=== PATIENT | male | born 1980 | race Caucasian/White ===

== ENCOUNTER 2021-12-20 13:43 | Inpatient (IN) | payer OTHER ==
[2021-12-20 14:23] VITALS: BMI 31.4
[2021-12-20] MEDS ORDERED: IBUPROFEN 400 MG TABLET (FP) PO PRN (14:41)
[2021-12-20] MEDS ORDERED: MAGNESIUM CITRATE 300 ML BOTTLE PO PRN (14:41)
[2021-12-20] MEDS ORDERED: IBUPROFEN 600 MG TABLET (FP) PO PRN (14:41)
[2021-12-20] MEDS ORDERED: ACETAMINOPHEN 325 MG TABLET (FP) PO PRN ×2 (14:41)
[2021-12-20] MEDS ORDERED: NICOTINE 10 MG CARTRIDGE (INHALER) IH PRN (14:41)
[2021-12-20] MEDS ORDERED: cloNIDine HCL 0.1 MG TABLET PO PRN (14:41)
[2021-12-20] MEDS ORDERED: LOPERAMIDE HCL 2 MG CAPSULE PO PRN (14:41)
[2021-12-20] MEDS ORDERED: chlordiazePOXIDE HCL 25 MG CAPSULE PO PRN (14:41)
[2021-12-20] MEDS ORDERED: MAGNESIUM HYDROX 2400MG/30ML ORAL SUSPENSION 30 ML CUP PO PRN (14:41)
[2021-12-20] MEDS ORDERED: methaDONE HCL 10 MG TABLET (FOR DETOX USE ONLY) PO ONE ×2 (14:41→19:30)
[2021-12-20] MEDS ORDERED: BISMUTH SUBSALICYLATE 262 MG/15 ML BTL PO PRN (14:41)
[2021-12-20] MEDS ORDERED: ONDANSETRON *ODT* 4 MG TABLET SL PRN (14:41)
[2021-12-20] MEDS ORDERED: BENZOCAINE/MENTHOL (CHLORASEPTIC ) LOZENGE MM PRN (14:41)
[2021-12-20] MEDS ORDERED: MAG HYDROX/AL HYDROX/SIMETH 30 ML UNIT-DOSE CUP PO PRN (14:41)
[2021-12-20] MEDS ORDERED: NALOXONE HCL (KLOXXADO) 8 MG SPRAY NS PRN (14:41)
[2021-12-20] MEDS ORDERED: DICYCLOMINE HCL 10 MG CAPSULE PO PRN (14:41)
[2021-12-20] MEDS: PRENATAL VITAMINS W/ FOLIC ACID TABLET (FP) PO SCH (19:40)
[2021-12-20] MEDS: NICOTINE 14 MG/24 HOURS TOPICAL PATCH TD SCH (19:41)
[2021-12-20] MEDS: hydrOXYzine PAMOATE 25 MG CAPSULE (FP) PO SCH ×2 (19:41→23:35)
[2021-12-20] MEDS: chlordiazePOXIDE HCL 25 MG CAPSULE PO SCH ×2 (19:42→23:10)
[2021-12-20] MEDS: THIAMINE HCL 100 MG TABLET (FP) PO SCH (23:11)
[2021-12-20] MEDS: MELATONIN 5 MG TABLETS PO SCH (23:13)
[2021-12-21] MEDS: hydrOXYzine PAMOATE 25 MG CAPSULE (FP) PO SCH ×6 (06:23→22:25)
[2021-12-21] MEDS: chlordiazePOXIDE HCL 25 MG CAPSULE PO SCH ×4 (06:23→22:24)
[2021-12-21] MEDS ORDERED: methaDONE HCL 10 MG TABLET (FOR DETOX USE ONLY) ONE (09:53)
[2021-12-21] MEDS: PRENATAL VITAMINS W/ FOLIC ACID TABLET (FP) PO SCH (10:46)
[2021-12-21] MEDS: METHOCARBAMOL 500 MG TABLET PO PRN (10:46)
[2021-12-21] MEDS: NICOTINE 14 MG/24 HOURS TOPICAL PATCH TD SCH (10:47)
[2021-12-21] MEDS: SERTRALINE HCL 50 MG TABLET (FP) PO SCH (13:11)
[2021-12-21] MEDS: QUEtiapine FUMARATE 50 MG TABLET PO SCH (22:24)
[2021-12-21] MEDS: THIAMINE HCL 100 MG TABLET (FP) PO SCH (22:24)
[2021-12-21] MEDS: MELATONIN 5 MG TABLETS PO SCH (22:25)
[2021-12-22] MEDS: chlordiazePOXIDE HCL 25 MG CAPSULE PO SCH ×4 (05:43→22:28)
[2021-12-22] MEDS: hydrOXYzine PAMOATE 25 MG CAPSULE (FP) PO SCH ×5 (05:43→22:30)
[2021-12-22] MEDS ORDERED: methaDONE HCL 10 MG TABLET (FOR DETOX USE ONLY) PO ONE (10:00)
[2021-12-22] MEDS: SERTRALINE HCL 50 MG TABLET (FP) PO SCH (10:34)
[2021-12-22] MEDS: PRENATAL VITAMINS W/ FOLIC ACID TABLET (FP) PO SCH (10:34)
[2021-12-22] MEDS: METHOCARBAMOL 500 MG TABLET PO PRN (10:35)
[2021-12-22] MEDS: NICOTINE 14 MG/24 HOURS TOPICAL PATCH TD SCH (10:36)
[2021-12-22] MEDS: THIAMINE HCL 100 MG TABLET (FP) PO SCH (22:28)
[2021-12-22] MEDS: MELATONIN 5 MG TABLETS PO SCH (22:28)
[2021-12-22] MEDS: QUEtiapine FUMARATE 50 MG TABLET PO SCH (22:28)
[2021-12-23] MEDS ORDERED: chlordiazePOXIDE HCL 10 MG CAPSULE PO PRN
[2021-12-23] MEDS: chlordiazePOXIDE HCL 10 MG CAPSULE PO SCH ×4 (05:35→22:47)
[2021-12-23] MEDS: hydrOXYzine PAMOATE 25 MG CAPSULE (FP) PO SCH ×5 (05:35→22:46)
[2021-12-23] MEDS ORDERED: methaDONE HCL 10 MG TABLET (FOR DETOX USE ONLY) ONE (09:49)
[2021-12-23] MEDS: PRENATAL VITAMINS W/ FOLIC ACID TABLET (FP) PO SCH (10:48)
[2021-12-23] MEDS: SERTRALINE HCL 50 MG TABLET (FP) PO SCH (10:48)
[2021-12-23] MEDS: NICOTINE 14 MG/24 HOURS TOPICAL PATCH TD SCH (10:50)
[2021-12-23] MEDS: MELATONIN 5 MG TABLETS PO SCH (22:45)
[2021-12-23] MEDS: THIAMINE HCL 100 MG TABLET (FP) PO SCH (22:46)
[2021-12-23] MEDS: QUEtiapine FUMARATE 50 MG TABLET PO SCH (22:47)
[2021-12-24] MEDS: hydrOXYzine PAMOATE 25 MG CAPSULE (FP) PO SCH ×5 (05:22→22:12)
[2021-12-24] MEDS: chlordiazePOXIDE HCL 10 MG CAPSULE PO SCH ×2 (05:23→17:35)
[2021-12-24] MEDS ORDERED: methaDONE HCL 10 MG TABLET (FOR DETOX USE ONLY) PO ONE (10:00)
[2021-12-24] MEDS: PRENATAL VITAMINS W/ FOLIC ACID TABLET (FP) PO SCH (10:35)
[2021-12-24] MEDS: SERTRALINE HCL 50 MG TABLET (FP) PO SCH (10:36)
[2021-12-24] MEDS: NICOTINE 14 MG/24 HOURS TOPICAL PATCH TD SCH (10:37)
[2021-12-24] MEDS: METHOCARBAMOL 500 MG TABLET PO PRN (22:12)
[2021-12-24] MEDS: MELATONIN 5 MG TABLETS PO SCH (22:12)
[2021-12-24] MEDS: THIAMINE HCL 100 MG TABLET (FP) PO SCH (22:12)
[2021-12-24] MEDS: QUEtiapine FUMARATE 50 MG TABLET PO SCH (22:12)
[2021-12-25] MEDS ORDERED: chlordiazePOXIDE HCL 10 MG CAPSULE PO ONE (05:00)
[2021-12-25] MEDS: hydrOXYzine PAMOATE 25 MG CAPSULE (FP) PO SCH ×2 (05:46→11:00)
[2021-12-25 09:39] VITALS: RESP 17
[2021-12-25] MEDS: NICOTINE 14 MG/24 HOURS TOPICAL PATCH TD SCH (11:00)
[2021-12-25] MEDS: SERTRALINE HCL 50 MG TABLET (FP) PO SCH (11:00)
[2021-12-25] MEDS: PRENATAL VITAMINS W/ FOLIC ACID TABLET (FP) PO SCH (11:00)
[2021-12-25 13:24] VITALS: BP 120/66; PULSE 60; TEMP 97.1
== END 2021-12-25 13:25 | disposition other institution (70) | DRG 773 ==
LOC: YASAS 13:43 → Y6N 15:03
PROVIDERS: ADMIT Allergy & Immunology; ATTEND Surgery
PROC: HZ2ZZZZ Detoxification Services for Substance Abuse Treatment (ICD-10-PCS; principal; 2021-12-20)
DX: F11.23 Opioid dependence with withdrawal (principal); F10.230 Alcohol dependence with withdrawal, uncomplicated; F14.20 Cocaine dependence, uncomplicated; F12.20 Cannabis dependence, uncomplicated; F17.210 Nicotine dependence, cigarettes, uncomplicated; F19.282 Other psychoactive substance dependence with psychoactive substance-induced sleep disorder; F20.9 Schizophrenia, unspecified; E78.5 Hyperlipidemia, unspecified; I10 Essential (primary) hypertension; J45.909 Unspecified asthma, uncomplicated; R00.1 Bradycardia, unspecified; E66.9 Obesity, unspecified; Z68.31 Body mass index [BMI] 31.0-31.9, adult
CPT/HCPCS: 71045-TC-FY; 93005; 93010; C9803-CS; U0003; U0005

== ENCOUNTER 2021-12-25 13:30 | Inpatient (IN) | payer OTHER ==
[2021-12-25] MEDS ORDERED: MAGNESIUM HYDROX 2400MG/30ML ORAL SUSPENSION 30 ML CUP PO PRN (15:03)
[2021-12-25] MEDS ORDERED: BENZOCAINE/MENTHOL (CHLORASEPTIC ) LOZENGE MM PRN (15:03)
[2021-12-25] MEDS ORDERED: MAGNESIUM CITRATE 300 ML BOTTLE PO PRN (15:03)
[2021-12-25] MEDS ORDERED: LOPERAMIDE HCL 2 MG CAPSULE PO PRN (15:03)
[2021-12-25] MEDS ORDERED: ACETAMINOPHEN 325 MG TABLET (FP) PO PRN (15:03)
[2021-12-25] MEDS ORDERED: guaiFENesin 200 MG/10 ML 10 ML UNIT-DOSE CUPS PO PRN (15:03)
[2021-12-25] MEDS ORDERED: MAG HYDROX/AL HYDROX/SIMETH 30 ML UNIT-DOSE CUP PO PRN (15:03)
[2021-12-25] MEDS ORDERED: P-EPHED 60MG/TRIPROLIDI 2.5MG TABLET PO PRN (15:03)
[2021-12-25] MEDS: IBUPROFEN 400 MG TABLET (FP) PO PRN (17:20)
[2021-12-25] MEDS: MELATONIN 5 MG TABLETS PO SCH (21:38)
[2021-12-25] MEDS: THIAMINE HCL 100 MG TABLET (FP) PO SCH (21:39)
[2021-12-25] MEDS: hydrOXYzine PAMOATE 25 MG CAPSULE (FP) PO PRN (21:39)
[2021-12-25] MEDS: QUEtiapine FUMARATE 50 MG TABLET PO SCH (21:39)
[2021-12-26] MEDS: NICOTINE 7 MG/24 HOURS TOPICAL PATCH TD SCH (09:35)
[2021-12-26] MEDS: PRENATAL VITAMINS W/ FOLIC ACID TABLET (FP) PO SCH (09:35)
[2021-12-26] MEDS: SERTRALINE HCL 50 MG TABLET (FP) PO SCH (09:35)
[2021-12-26] MEDS ORDERED: PNEUMOC 20-VAL CONJ-DIP CRM/PF 0.5 ML SYRINGE IM ONE (12:00)
[2021-12-26] MEDS: NICOTINE 10 MG CARTRIDGE (INHALER) IH PRN (13:57)
[2021-12-26] MEDS: MELATONIN 5 MG TABLETS PO SCH (21:28)
[2021-12-26] MEDS: THIAMINE HCL 100 MG TABLET (FP) PO SCH (21:28)
[2021-12-26] MEDS: hydrOXYzine PAMOATE 25 MG CAPSULE (FP) PO PRN (21:28)
[2021-12-26] MEDS: QUEtiapine FUMARATE 50 MG TABLET PO SCH (21:29)
[2021-12-27] MEDS: PRENATAL VITAMINS W/ FOLIC ACID TABLET (FP) PO SCH (09:04)
[2021-12-27] MEDS: NICOTINE 7 MG/24 HOURS TOPICAL PATCH TD SCH (09:04)
[2021-12-27] MEDS: SERTRALINE HCL 50 MG TABLET (FP) PO SCH (09:05)
[2021-12-27] MEDS: IBUPROFEN 400 MG TABLET (FP) PO PRN (12:19)
[2021-12-27] MEDS: MELATONIN 5 MG TABLETS PO SCH (21:23)
[2021-12-27] MEDS: THIAMINE HCL 100 MG TABLET (FP) PO SCH (21:23)
[2021-12-27] MEDS: QUEtiapine FUMARATE 50 MG TABLET PO SCH (21:23)
[2021-12-28] MEDS: NICOTINE 7 MG/24 HOURS TOPICAL PATCH TD SCH (09:37)
[2021-12-28] MEDS: SERTRALINE HCL 50 MG TABLET (FP) PO SCH (09:38)
[2021-12-28] MEDS: PRENATAL VITAMINS W/ FOLIC ACID TABLET (FP) PO SCH (09:38)
[2021-12-28] MEDS: NICOTINE 10 MG CARTRIDGE (INHALER) IH PRN (10:19)
[2021-12-28] MEDS: MELATONIN 5 MG TABLETS PO SCH (21:17)
[2021-12-28] MEDS: THIAMINE HCL 100 MG TABLET (FP) PO SCH (21:17)
[2021-12-28] MEDS: QUEtiapine FUMARATE 50 MG TABLET PO SCH (21:17)
[2021-12-29] MEDS: PRENATAL VITAMINS W/ FOLIC ACID TABLET (FP) PO SCH (09:38)
[2021-12-29] MEDS: NICOTINE 7 MG/24 HOURS TOPICAL PATCH TD SCH (09:38)
[2021-12-29] MEDS: SERTRALINE HCL 50 MG TABLET (FP) PO SCH (09:39)
[2021-12-29 09:47] LABS: ALBUMIN 3.8 g/dl (3.4-5.0); BLOOD UREA NITROGEN 12.4 mg/dL (7-18); CALCIUM 9.2 mg/dL (8.5-10.1)
[2021-12-29 09:50] LABS: CREATININE 0.7 mg/dL (0.55-1.3)
[2021-12-29 09:52] LABS: BILIRUBIN,TOTAL 0.6 mg/dL (0.2-1); TOT PROT 7.4 g/dl (6.4-8.2)
[2021-12-29] MEDS: QUEtiapine FUMARATE 50 MG TABLET PO SCH (21:38)
[2021-12-29] MEDS: hydrOXYzine PAMOATE 25 MG CAPSULE (FP) PO PRN (21:38)
[2021-12-29] MEDS: THIAMINE HCL 100 MG TABLET (FP) PO SCH (21:38)
[2021-12-29] MEDS: NICOTINE 10 MG CARTRIDGE (INHALER) IH PRN (21:39)
[2021-12-29] MEDS: MELATONIN 5 MG TABLETS PO SCH (21:39)
[2021-12-30] MEDS: IBUPROFEN 400 MG TABLET (FP) PO PRN (07:02)
[2021-12-30] MEDS: hydrOXYzine PAMOATE 25 MG CAPSULE (FP) PO PRN ×2 (07:02→21:08)
[2021-12-30] MEDS: NICOTINE 7 MG/24 HOURS TOPICAL PATCH TD SCH (10:02)
[2021-12-30] MEDS: PRENATAL VITAMINS W/ FOLIC ACID TABLET (FP) PO SCH (10:02)
[2021-12-30] MEDS: SERTRALINE HCL 50 MG TABLET (FP) PO SCH (10:02)
[2021-12-30] MEDS: THIAMINE HCL 100 MG TABLET (FP) PO SCH (21:08)
[2021-12-30] MEDS: QUEtiapine FUMARATE 50 MG TABLET PO SCH (21:08)
[2021-12-30] MEDS: MELATONIN 5 MG TABLETS PO SCH (21:08)
[2021-12-31] MEDS: NICOTINE 7 MG/24 HOURS TOPICAL PATCH TD SCH (09:35)
[2021-12-31] MEDS: PRENATAL VITAMINS W/ FOLIC ACID TABLET (FP) PO SCH (09:35)
[2021-12-31] MEDS: SERTRALINE HCL 50 MG TABLET (FP) PO SCH (09:35)
[2021-12-31] MEDS: IBUPROFEN 400 MG TABLET (FP) PO PRN (09:36)
[2021-12-31] MEDS: NICOTINE 10 MG CARTRIDGE (INHALER) IH PRN (09:37)
[2021-12-31] MEDS: QUEtiapine FUMARATE 50 MG TABLET PO SCH (21:13)
[2021-12-31] MEDS: THIAMINE HCL 100 MG TABLET (FP) PO SCH (21:13)
[2021-12-31] MEDS: MELATONIN 5 MG TABLETS PO SCH (21:13)
[2021-12-31] MEDS: cloNIDine HCL 0.1 MG TABLET PO PRN (21:15)
[2022-01-01] MEDS: NICOTINE 7 MG/24 HOURS TOPICAL PATCH TD SCH (09:46)
[2022-01-01] MEDS: PRENATAL VITAMINS W/ FOLIC ACID TABLET (FP) PO SCH (09:46)
[2022-01-01] MEDS: SERTRALINE HCL 50 MG TABLET (FP) PO SCH (09:46)
[2022-01-01] MEDS: NICOTINE 10 MG CARTRIDGE (INHALER) IH PRN (13:44)
[2022-01-01] MEDS: THIAMINE HCL 100 MG TABLET (FP) PO SCH (21:02)
[2022-01-01] MEDS: MELATONIN 5 MG TABLETS PO SCH (21:02)
[2022-01-01] MEDS: QUEtiapine FUMARATE 50 MG TABLET PO SCH (21:03)
[2022-01-01] MEDS: cloNIDine HCL 0.1 MG TABLET PO PRN (21:03)
[2022-01-02] MEDS: SERTRALINE HCL 50 MG TABLET (FP) PO SCH (09:52)
[2022-01-02] MEDS: PRENATAL VITAMINS W/ FOLIC ACID TABLET (FP) PO SCH (09:52)
[2022-01-02] MEDS: NICOTINE 10 MG CARTRIDGE (INHALER) IH PRN (09:52)
[2022-01-02] MEDS: NICOTINE 7 MG/24 HOURS TOPICAL PATCH TD SCH (09:52)
[2022-01-02] MEDS: THIAMINE HCL 100 MG TABLET (FP) PO SCH (21:13)
[2022-01-02] MEDS: MELATONIN 5 MG TABLETS PO SCH (21:14)
[2022-01-02] MEDS: QUEtiapine FUMARATE 50 MG TABLET PO SCH (21:14)
[2022-01-02] MEDS: cloNIDine HCL 0.1 MG TABLET PO PRN (21:14)
[2022-01-03] MEDS: NICOTINE 10 MG CARTRIDGE (INHALER) IH PRN ×2 (06:16→21:05)
[2022-01-03] MEDS: SERTRALINE HCL 50 MG TABLET (FP) PO SCH (09:45)
[2022-01-03] MEDS: PRENATAL VITAMINS W/ FOLIC ACID TABLET (FP) PO SCH (09:45)
[2022-01-03] MEDS: NICOTINE 7 MG/24 HOURS TOPICAL PATCH TD SCH (09:45)
[2022-01-03] MEDS: IBUPROFEN 400 MG TABLET (FP) PO PRN (09:46)
[2022-01-03] MEDS: THIAMINE HCL 100 MG TABLET (FP) PO SCH (21:04)
[2022-01-03] MEDS: MELATONIN 5 MG TABLETS PO SCH (21:04)
[2022-01-03] MEDS: cloNIDine HCL 0.1 MG TABLET PO PRN (21:04)
[2022-01-03] MEDS: QUEtiapine FUMARATE 50 MG TABLET PO SCH (21:04)
[2022-01-04] MEDS: NICOTINE 7 MG/24 HOURS TOPICAL PATCH TD SCH (09:09)
[2022-01-04] MEDS: PRENATAL VITAMINS W/ FOLIC ACID TABLET (FP) PO SCH (09:09)
[2022-01-04] MEDS: SERTRALINE HCL 50 MG TABLET (FP) PO SCH (09:09)
[2022-01-04] MEDS: IBUPROFEN 400 MG TABLET (FP) PO PRN (09:09)
[2022-01-04] MEDS: QUEtiapine FUMARATE 50 MG TABLET PO SCH (21:14)
[2022-01-04] MEDS: hydrOXYzine PAMOATE 25 MG CAPSULE (FP) PO PRN (21:14)
[2022-01-04] MEDS: MELATONIN 5 MG TABLETS PO SCH (21:14)
[2022-01-04] MEDS: cloNIDine HCL 0.1 MG TABLET PO PRN (21:14)
[2022-01-04] MEDS: THIAMINE HCL 100 MG TABLET (FP) PO SCH (21:14)
[2022-01-04] MEDS: NICOTINE 10 MG CARTRIDGE (INHALER) IH PRN (21:15)
[2022-01-05] MEDS: IBUPROFEN 400 MG TABLET (FP) PO PRN (06:25)
[2022-01-05 07:22] VITALS: RESP 18; TEMP 97
[2022-01-05] MEDS: NICOTINE 10 MG CARTRIDGE (INHALER) IH PRN (07:44)
[2022-01-05] MEDS: PRENATAL VITAMINS W/ FOLIC ACID TABLET (FP) PO SCH (09:54)
[2022-01-05] MEDS: SERTRALINE HCL 50 MG TABLET (FP) PO SCH (09:54)
[2022-01-05] MEDS: NICOTINE 7 MG/24 HOURS TOPICAL PATCH TD SCH (09:54)
[2022-01-05] MEDS ORDERED: BUPRENORPHINE/NALOXONE 2 MG/0.5 MG FILM PACKET SL SCH (10:45)
[2022-01-05 12:42] VITALS: BP 134/85; PULSE 75
[2022-01-05] MEDS: cloNIDine HCL 0.1 MG TABLET PO PRN (12:45)
== END 2022-01-05 14:47 | disposition left against medical advice (07) | DRG 770 ==
LOC: YASAS 13:30 → Y3E 13:31
PROVIDERS: ADMIT Allergy & Immunology; ATTEND Psychiatry & Neurology Pain Medicine
PROC: HZ42ZZZ Group Counseling for Substance Abuse Treatment, Cognitive-Behavioral (ICD-10-PCS; principal; 2021-12-25)
DX: F11.20 Opioid dependence, uncomplicated (principal); F10.20 Alcohol dependence, uncomplicated; F14.20 Cocaine dependence, uncomplicated; F12.20 Cannabis dependence, uncomplicated; F17.210 Nicotine dependence, cigarettes, uncomplicated; I10 Essential (primary) hypertension; J45.909 Unspecified asthma, uncomplicated; E66.9 Obesity, unspecified; Z68.31 Body mass index [BMI] 31.0-31.9, adult
CPT/HCPCS: 36415; 80053; 90677; J0735

== ENCOUNTER 2023-09-12 10:17 | Inpatient (IN) | payer OTHER ==
[2023-09-12 11:37] VITALS: BMI 23.6
[2023-09-12] MEDS ORDERED: IBUPROFEN 400 MG TABLET (FP) PO PRN (12:57)
[2023-09-12] MEDS ORDERED: BENZONATATE 200 MG CAPSULE PO PRN (12:57)
[2023-09-12] MEDS ORDERED: MAGNESIUM HYDROX 2400MG/30ML ORAL SUSPENSION 30 ML CUP PO PRN (12:57)
[2023-09-12] MEDS ORDERED: LOPERAMIDE HCL 2 MG CAPSULE PO PRN (12:57)
[2023-09-12] MEDS ORDERED: BENZOCAINE/MENTHOL (CHLORASEPTIC ) LOZENGE MM PRN (12:57)
[2023-09-12] MEDS ORDERED: NALOXONE HCL 0.4 MG/ML VIAL IM PRN (12:57)
[2023-09-12] MEDS ORDERED: guaiFENesin 600 MG TABLET.ER (FP) PO PRN (12:57)
[2023-09-12] MEDS ORDERED: POLYETHYLENE GLYCOL (HEALTHYLAX) 3350 17 GM PACKET PO PRN (12:57)
[2023-09-12] MEDS ORDERED: ACETAMINOPHEN 325 MG TABLET (FP) PO PRN (12:57)
[2023-09-12] MEDS ORDERED: IBUPROFEN 600 MG TABLET (FP) PO PRN (12:57)
[2023-09-12] MEDS ORDERED: NALOXONE HCL (KLOXXADO) 8 MG SPRAY NS PRN (12:57)
[2023-09-12] MEDS: PRENATAL VITAMINS W/ FOLIC ACID TABLET (FP) PO SCH (14:09)
[2023-09-12] MEDS: ONDANSETRON *ODT* 4 MG TABLET SL PRN (14:09)
[2023-09-12] MEDS: LISINOPRIL 5 MG TABLET PO SCH (14:09)
[2023-09-12] MEDS ORDERED: ONDANSETRON *ODT* 4 MG TABLET ONE (14:11)
[2023-09-12] MEDS ORDERED: LISINOPRIL 10 MG TABLET ONE (14:12)
[2023-09-12] MEDS: BISMUTH SUBSALICYLATE 524 MG/30 ML PO PRN (18:53)
[2023-09-12] MEDS: THIAMINE HCL 100 MG TABLET (FP) PO SCH (22:19)
[2023-09-12] MEDS: QUEtiapine FUMARATE 50 MG TABLET PO SCH (22:19)
[2023-09-12] MEDS: MELATONIN 5 MG TABLETS PO SCH (22:19)
[2023-09-13] MEDS ORDERED: methaDONE HCL 10 MG TABLET PO ONE (06:00)
[2023-09-13 14:11] LABS: HEMATOCRIT 46.1 % (35.4-49); HEMOGLOBIN 15.1 GM/dL (11.7-16.9); MCH 30.2 pg (25.7-33.7); MCHC 32.7 g/dl (32.0-35.9); MEAN CELL VOLUME 92.5 fl (80-96); MEAN PLT VOLUME 9.4 fl (7.5-11.1); PLATELET COUNT 266 10^3/uL (134-434); RBC 4.99 M/mm3 (4.00-5.60); RDW 13.9 % (11.9-15.9); WHITE BLOOD COUNT 11.1 K/mm3 (4.0-10.0)
[2023-09-13 14:47] LABS: POTASSIUM 3.9 mmol/L (3.5-5.1)
[2023-09-13 14:48] LABS: ALBUMIN 3.9 g/dl (3.4-5.0); CALCIUM 9.6 mg/dL (8.5-10.1)
[2023-09-13 14:49] LABS: BLOOD UREA NITROGEN 10.5 mg/dL (7-18)
[2023-09-13 14:52] LABS: CREATININE 0.8 mg/dL (0.55-1.3)
[2023-09-13 14:53] LABS: BILIRUBIN,TOTAL 0.8 mg/dL (0.2-1); TOT PROT 7.5 g/dl (6.4-8.2)
[2023-09-13 15:20] LABS: HIV INTERPRETATION NEGATIVE (NEGATIVE)
[2023-09-13] MEDS: QUEtiapine FUMARATE 50 MG TABLET PO SCH (22:14)
[2023-09-14] MEDS ORDERED: methaDONE HCL 10 MG TABLET PO SCH (06:00)
[2023-09-14] MEDS: hydrOXYzine PAMOATE 25 MG CAPSULE (FP) PO PRN (06:35)
[2023-09-14] MEDS: SERTRALINE HCL 50 MG TABLET (FP) PO SCH (10:29)
[2023-09-14] MEDS: DICYCLOMINE HCL 10 MG CAPSULE PO PRN (22:10)
[2023-09-15] MEDS: methaDONE HCL 40 MG DISPERSABLE TABLET PO ONE (05:34)
[2023-09-15] MEDS ORDERED: methaDONE HCL 10 MG TABLET PO ONE (06:00)
[2023-09-16] MEDS: METHOCARBAMOL 500 MG TABLET PO PRN (05:51)
[2023-09-16] MEDS ORDERED: methaDONE HCL 10 MG TABLET PO ONE ×2 (06:00→06:10)
[2023-09-16] MEDS: MAG HYDROX/AL HYDROX/SIMETH 30 ML UNIT-DOSE CUP PO PRN (18:10)
[2023-09-17] MEDS ORDERED: methaDONE HCL 10 MG TABLET PO ONE ×2 (06:00)
[2023-09-17 10:04] VITALS: BP 148/90; PULSE 63; RESP 16; TEMP 98.2
== END 2023-09-17 10:33 | disposition home or self-care (01) | DRG 773 ==
LOC: YASAS 10:17 → Y3N 14:35
PROVIDERS: ADMIT Allergy & Immunology; ATTEND Surgery
PROC: HZ2ZZZZ Detoxification Services for Substance Abuse Treatment (ICD-10-PCS; principal; 2023-09-12)
DX: F11.23 Opioid dependence with withdrawal (principal); F13.20 Sedative, hypnotic or anxiolytic dependence, uncomplicated; F10.10 Alcohol abuse, uncomplicated; F12.10 Cannabis abuse, uncomplicated; F25.9 Schizoaffective disorder, unspecified; F31.9 Bipolar disorder, unspecified; D72.829 Elevated white blood cell count, unspecified; I10 Essential (primary) hypertension; Z87.891 Personal history of nicotine dependence
CPT/HCPCS: 36415; 71046-TC-FY; 80053; 85027; 86780; 87389; 93005; 93010; Q0162